=== PATIENT | male | born 1955 | race African-American/Black ===

== ENCOUNTER 2018-12-28 08:50 | Emergency (ER) | payer SELFPAY ==
[2018-12-28] MEDS ORDERED: Sodium Chloride 0.9% 10 ML Syringe FLUSH PRN (08:57)
[2018-12-28] MEDS ORDERED: HYDROmorphone 0.5 MG/0.5 ML Syringe IVPUSH ONE (08:59)
--- NOTE | 2018-12-28 10:33 | CR ---
Chest: Portable view of the chest was obtained. Comparison: No prior chest x-ray. Heart size is normal. Mild tortuosity of the thoracic aorta is seen. Lungs are clear with no acute parenchymal change. Bony structures are grossly intact. Impression: 1. Nothing acute is appreciated on portable chest x-ray. Diagnostic code #1
--- NOTE | 2018-12-28 12:25 | EDM.PDOC ---
ED HPI GENERAL MEDICAL PROBLEM - General Chief Complaint: Chest Pain Stated Complaint: [facility] Time Seen by Provider: 12/28/18 08:57 Source of Information: Reports: Patient, EMS History Limitations: Reports: No Limitations - History of Present Illness INITIAL COMMENTS - FREE TEXT/NARRATIVE: The patient presents by [facility] for chest pain. 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 He says the chest pain started yesterday. He says it is sharp and it started in the right shoulder and then went to his chest. He has no shortness of breath. He has no abdominal pain, nausea or vomiting. He has no cardiac history of but he does have hypertension that is being treated. He does smoke cigars. He has no fever, chills, cough or runny nose. He has no swelling or pain in his legs. The patient took last night and this morning. EMS gave him nitro. Onset: Gradual Duration: Day(s): (2) Location: Reports: Chest Quality: Reports: Sharp Severity: Moderate Improves with: Reports: None Worsens with: Reports: None Associated Symptoms: Reports: Chest Pain Chest Pain Score (Numeric/FACES): 4 - Related Data Allergies Allergy/AdvReac Type Severity Reaction Status Date / Time No Known Allergies Allergy Verified 12/28/18 09:04 Home Meds: Home Meds Aspirin [Adult Low Dose Aspirin EC] 2 tab PO DAILY 12/28/18 [History] Cyanocobalamin (Vitamin B12) [Vitamin B12] 1 tab PO DAILY 12/28/18 [History] Fish Oil/[place]-3 Fatty Acids [Fish Oil 1,000 MG] 1 tab PO DAILY 12/28/18 [ History] Flaxseed/Omega3,6,9/Fatty Acid [Flax Seed Oil 1,300 mg Softgel] 1 tab PO DAILY 12/28/18 [History] Multivitamin [Multivitamins] 1 tab PO DAILY 12/28/18 [History] Neugenix. 1 tab PO DAILY 12/28/18 [History] Past Medical History Cardiovascular History: Reports: Hypertension Social & Family History - Tobacco Use Smoking Status *Q: Current Every Day Smoker Years of Tobacco use: 2 Packs/Tins Daily: 1 - Caffeine Use Caffeine Use: Reports: Coffee - Recreational Drug Use Recreational Drug Use: No ED ROS GENERAL - Review of Systems Review Of Systems: See Below Constitutional: Reports: No Symptoms HEENT: Reports: No Symptoms Respiratory: Reports: No Symptoms Cardiovascular: Reports: Chest Pain Endocrine: Reports: No Symptoms GI/Abdominal: Reports: No Symptoms : Reports: No Symptoms Musculoskeletal: Reports: No Symptoms ED EXAM, GENERAL - Physical Exam Exam: See Below Exam Limited By: No Limitations General Appearance: Alert, No Apparent Distress Ears: Normal External Exam Nose: Normal Inspection Head: Atraumatic, Normocephalic Neck: Normal Inspection Respiratory/Chest: No Respiratory Distress, Lungs Clear, Normal Breath Sounds Cardiovascular: Regular Rate, Rhythm, No Edema, No Murmur GI/Abdominal: Soft, Non-Tender, No Organomegaly, No Mass Back Exam: Normal Inspection Extremities: Normal Inspection EKG INTERPRETATION EKG Date: 12/28/18 Time: 09:06 Rhythm: NSR Rate (Beats/Min): 87 [place]: Normal P-Wave: Present QRS: Normal ST-T: Other (Flattened T waves in the lateral leads with slight ST elevation in the anterior leads) QT: Normal [place]/PQ Interval: 1st degree HB Course - Vital Signs Last Recorded V/S: Last Vital Signs Temp 96.9 F 12/28/18 08:59 Pulse 87 12/28/18 08:59 Resp 18 12/28/18 08:59 BP 134/82 12/28/18 08:59 Pulse Ox 94 L 12/28/18 08:59 - Orders/Labs/Meds Orders: Active Orders 24 hr Category Date Time Status Cardiac Monitoring [RC] . DIRECTED Care 12/28/18 08:57 Active EKG Documentation Completion [RC] ASDIRECTED Care 12/28/18 11:32 Active EKG Documentation Completion [RC] STAT Care 12/28/18 08:58 Active Oxygen Therapy [RC] PRN Care 12/28/18 08:57 Active Peripheral IV Care [RC] . DIRECTED Care 12/28/18 08:58 Active Sodium Chloride 0.9% [Saline Flush] Med 12/28/18 08:57 Active 10 ml FLUSH ASDIRECTED PRN Peripheral IV Insertion Adult [OM.PC] Stat Oth 12/28/18 08:57 Ordered EKG 12 Lead [EK] Stat Ther 12/28/18 11:31 Ordered Medication Orders Sodium Chloride (Saline Flush) 10 ml FLUSH ASDIRECTED PRN PRN Reason: Keep Vein Open Last Admin: 12/28/18 09:17 Dose: 10 ml Labs: Laboratory Tests 12/28/18 12/28/18 12/28/18 Range/Units 09:15 09:15 11:41 WBC 14.13 H (4.23-9.07) K/mm3 RBC 6.05 (4.63-6.08) M/mm3 Hgb 16.6 (13.7-17.5) gm/L Hct 46.3 (40.1-51.0) % MCV 76.5 L (79.0-92.2) fl MCH 27.4 (25.7-32.2) pg MCHC 35.9 H (32.2-35.5) g/dl RDW Std Deviation 43.0 (35.1-43.9) fL Plt Count 272 (163-337) K/mm3 MPV 10.3 (9.4-12.3) fl Neut % (Auto) 80.0 H (34.0-67.9) % Lymph % (Auto) 12.7 L (21.8-53.1) % [place] % (Auto) 6.7 (5.3-12.2) % Eos % (Auto) 0.1 L (0.8-7.0) Baso % (Auto) 0.2 (0.1-1.2) % Neut # (Auto) 11.30 H (1.78-5.38) K/mm3 Lymph # (Auto) 1.80 (1.32-3.57) K/mm3 [place] # (Auto) 0.94 H (0.30-0.82) K/mm3 Eos # (Auto) 0.02 L (0.04-0.54) K/mm3 Baso # (Auto) 0.03 (0.01-0.08) K/mm3 Manual Slide Review Normal smear Sodium 136 (136-145) mEq/L Potassium 3.8 (3.5-5.1) mEq/L Chloride 100 (98-107) mEq/L Carbon Dioxide 23 (21-32) mEq/L Anion Gap 16.8 H (5-15) BUN 16 (7-18) mg/dL Creatinine 1.2 (0.7-1.3) mg/dL Est Cr Clr Drug Dosing 61.37 mL/min Estimated GFR (MDRD) > 60 (>60) mL/min BUN/Creatinine Ratio 13.3 L (14-18) Glucose 118 H (80-115) mg/dL Calcium 9.4 (8.5-10.1) mg/dL Total Bilirubin 0.6 (0.2-1.0) mg/dL AST 19 (15-37) U/L ALT 28 (16-63) U/L Alkaline Phosphatase 73 (46-116) U/L Troponin I < 0.017 < 0.017 (0.00-0.056) ng/mL Total Protein 7.9 (6.4-8.2) g/dl Albumin 3.7 (3.4-5.0) g/dl Globulin 4.2 gm/dL Albumin/Globulin Ratio 0.9 L (1-2) Meds: Medications Generic Name Dose Route Start Last Admin Trade Name Freq PRN Reason Stop Dose Admin Sodium Chloride 10 ml 12/28/18 08:57 12/28/18 09:17 Saline Flush FLUSH 10 ml ASDIRECTED PRN Administration Keep Vein Open Discontinued Medications Generic Name Dose Route Start Last Admin Trade Name Freq PRN Reason Stop Dose Admin Hydromorphone HCl 0.5 mg 12/28/18 08:59 12/28/18 09:17 Dilaudid IVPUSH 12/28/18 09:00 0.5 mg ONETIME ONE Administration - Re-Assessments/Exams Free Text/Narrative Re-Assessment/Exam: 12/28/18 12:26 I ordered an IV saline lock, EKG, CXR, labs and dilaudid. His EKG shows some flattened T waves in the lateral leads and slight elevation in the anterior leads. His labs look good. His troponin is negative. I did a repeat troponin and that was negative and his repeat EKG shows no acute changes. I will discharge him home. Departure - Departure Time of Disposition: 12:30 Disposition: Home, Self-Care 01 Condition: Good Clinical Impression: Atypical chest pain Referrals: PCP,Not In Area [Primary Care Provider] - Additional Instructions: Take your medication as directed. Follow up with your doctor in 1 week. - My Orders Last 24 Hours: My Active Orders 12/28/18 08:57 Cardiac Monitoring [RC] . DIRECTED Oxygen Therapy [RC] PRN Sodium Chloride 0.9% [Saline Flush] 10 ml FLUSH ASDIRECTED PRN Peripheral IV Insertion Adult [OM.PC] Stat 12/28/18 08:58 EKG Documentation Completion [RC] STAT Peripheral IV Care [RC] . DIRECTED 12/28/18 11:31 EKG 12 Lead [EK] Stat 12/28/18 11:32 EKG Documentation Completion [RC] ASDIRECTED - Assessment/Plan Last 24 Hours: My Active Orders 12/28/18 08:57 Cardiac Monitoring [RC] . DIRECTED Oxygen Therapy [RC] PRN Sodium Chloride 0.9% [Saline Flush] 10 ml FLUSH ASDIRECTED PRN Peripheral IV Insertion Adult [OM.PC] Stat 12/28/18 08:58 EKG Documentation Completion [RC] STAT Peripheral IV Care [RC] . DIRECTED 12/28/18 11:31 EKG 12 Lead [EK] Stat 12/28/18 11:32 EKG Documentation Completion [RC] ASDIRECTED
== END 2018-12-28 12:42 | disposition home or self-care (01) ==
LOC: JD.ED 08:50
DX: R07.89 Other chest pain (principal); F17.210 Nicotine dependence, cigarettes, uncomplicated; Z79.82 Long term (current) use of aspirin; Z79.899 Other long term (current) drug therapy
CPT/HCPCS: 36415; 71045; 80053; 84484; 85025; 93005; 96374; 99285; J1170; 93010; 99284